=== PATIENT | male | born 1985 | race Caucasian/White ===

== ENCOUNTER 2021-06-18 18:33 | Emergency (ER) | payer BC, SELFPAY ==
--- NOTE | ~2021-06-18 | XR_ITS ---
EXAMINATION: XR CHEST CLINICAL INFORMATION: Fall with rib pain. COMPARISON: None. TECHNIQUE: 2 views of the chest were obtained. FINDINGS: Normal appearance of the cardiomediastinal silhouette. No focal airspace opacities, pleural effusions or pneumothorax. No evidence of acutely displaced rib fractures. XR/XR chest 2V IMPRESSION: No acute cardiopulmonary findings. No acutely displaced rib fractures.
[2021-06-18 19:32] VITALS: BP 157/97; PULSE 105; RESP 16; TEMP 37.4; O2SAT 98; BMI 30.3
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
[2021-06-18] MEDS: Ketorolac Tromethamine 30 MG/ML VIAL IM (20:55)
== END 2021-06-18 21:01 | disposition home or self-care (01) ==
PROVIDERS: Emergency Provider Internal Medicine
DX: Z04.3 Encounter for examination and observation following other accident (principal); R07.81 Pleurodynia
CPT/HCPCS: 71046; 96372; 99284; J1885

== ENCOUNTER 2021-06-28 16:37 | Outpatient (REF) | payer BC, SELFPAY ==
[2021-06-28 16:43] LABS: MANUAL DIFF FLAG NO
[2021-06-28 16:55] LABS: Ammonia 48 umol/L (13-55)
[2021-06-28 16:56] LABS: Basophils Absolute Auto 0.1 X10*3/uL (0.0-0.2); Basophils Percent Auto 0.3 % (0-2); Hematocrit 34.8 % (42.0-52.0); Hemoglobin 12.2 g/dl (14.0-18.0); Imm Gran Pct Auto 0.9 % (0.0-0.4); Lymphocytes Absolute Auto 2.3 X10*3/uL (1.2-4.9); Lymphocytes Percent Auto 10.4 % (20-40); Mean Corpuscular HGB Conc 35.1 g/dl (31.0-36.0); Mean Corpuscular Hemoglobin 38.2 pg (27.0-33.0); Mean Corpuscular Volume 109.1 fL (80.0-98.0); Mean Platelet Volume 9.1 fL (9.4-12.4); Monocytes Absolute Auto 1.2 X10*3/uL (0.1-1.2); Monocytes Percent Auto 5.6 % (2-11); Neutrophils Absolute Auto 18.5 x10*3/uL (2.0-8.3); Neutrophils Percent Auto 82.8 % (45-73); Platelet Count 336 X10*3/uL (160-400); Red Blood Count 3.19 X10*6/uL (4.60-5.80); Red Cell Distribution Width 13.2 % (11.0-16.0); White Blood Count 22.3 X10*3/uL (4.8-10.8)
[2021-06-28 17:30] LABS: Alanine Aminotransferase 67 U/L (0-40); Albumin Level 3.9 g/dL (3.5-5.0); Alkaline Phosphatase 198 U/L (39-117); Anion Gap 16 (12-20); Aspartate Amino Transferase 163 U/L (5-37); Bilirubin Total 4.8 mg/dL (0.0-1.0); Blood Urea Nitrogen 4 mg/dL (9-16); C Reactive Protein 2.79 mg/dL (< or = 0.50); Calcium 9.5 mg/dL (8.4-10.2); Carbon Dioxide 23 mmol/L (22-29); Chloride 94 mmol/L (96-108); Cholesterol 226 mg/dL; Estimated Glomerular Filt Rate > 60; Glucose Fasting 129 mg/dL (60-99); HDL Cholesterol 26 mg/dL; LDL Cholesterol Calculated 175 mg/dl; Potassium 4.4 mmol/L (3.3-5.1); Sodium 129 mmol/L (135-145); Total Protein 7.1 g/dL (6.5-8.0); Triglycerides 126 mg/dL
[2021-06-28 17:32] LABS: Erythrocyte Sedimentation Rate 17 MM/HR (0-15)
[2021-06-28 17:44] LABS: TSH reflex Free T4 2.44 uIU/mL (0.32-4.0)
== END 2021-06-28 16:38 | disposition home or self-care (01) ==
LOC: HO.LAB 16:37
PROVIDERS: Visit Provider Nurse Practitioner Family
DX: G25.0 Essential tremor (principal); M62.81 Muscle weakness (generalized); I10 Essential (primary) hypertension; E78.00 Pure hypercholesterolemia, unspecified; Z76.89 Persons encountering health services in other specified circumstances
CPT/HCPCS: 36415; 80053; 80061; 82140; 82550; 84443; 85025; 85652; 86140

== ENCOUNTER 2021-07-02 10:10 | Inpatient (IN) | payer BC, SELFPAY ==
[2021-07-02] VITALS (7 sets, daily range): BP systolic 116–135; BP diastolic 71–78; PULSE 75–90; RESP 16–23; TEMP 36.7–37.1; O2SAT 97–98; BMI 27.9
--- NOTE | ~2021-07-02 | CT_ITS ---
EXAMINATION: CT ABDOMEN AND PELVIS WITH CONTRAST CLINICAL INFORMATION: 36-year-old male with weakness and elevated white blood cell count. COMPARISON: None TECHNIQUE: Multidetector volumetric images were obtained from the superior aspect of the liver through the pubic symphysis following administration 85 mL of Omnipaque 350 intravenous contrast. Sagittal and coronal reformatted images were obtained on the technologist's workstation. This CT examination was performed using dose optimization techniques as appropriate, variously including the following: *Automated exposure control *Adjustment of mA and/or kV according to patient size (this includes techniques or standardized protocols for targeted exams where dose is matched to indication/reason for exam; i.e. extremities or head) *Use of iterative reconstruction technique DLP: 725 mGy-cm FINDINGS: Visualized lung bases are well aerated. The liver is enlarged. There is heterogeneously decreased attenuation of the liver is diffusely. The gallbladder is normal in appearance. The pancreas, spleen and adrenal glands are unremarkable. Symmetrically enhancing kidneys. No hydronephrosis bilaterally. Normal caliber loops of small and large bowel. Normal appendix. There are a few prominent/mildly enlarged gastric/celiac lymph nodes, for example a 1.7 cm node on image 22/102, series 3). Normal caliber abdominal aorta. No gross retroperitoneal lymphadenopathy. Small fat-containing umbilical hernia is present. The bladder is normal in appearance. The prostate gland is normal in size. No gross free pelvic fluid. No inguinal lymphadenopathy. Nondisplaced subacute fractures of the left lateral eighth and ninth ribs. CT/CT abdomen pelvis w con IMPRESSION: -Hepatomegaly with heterogeneously decreased attenuation of the liver. Findings are consistent with underlying liver disease. Correlation with liver enzymes recommended. -A few prominent/mildly enlarged gastric/celiac lymph nodes are demonstrated, nonspecific. -Nondisplaced subacute fractures of the left lateral eighth and ninth ribs. Fleischner guidelines were followed.
--- NOTE | ~2021-07-02 | XR_ITS ---
EXAMINATION: XR CHEST CLINICAL INFORMATION: Weakness COMPARISON: Chest x-ray 06/18/2021 TECHNIQUE: Frontal view of the chest was obtained. FINDINGS: Cardiac silhouette is normal in size. The lungs are well aerated. There is no lobar consolidation. No pleural effusion or pneumothorax. XR/XR chest 1V IMPRESSION: No acute pulmonary pathology
--- NOTE | 2021-07-02 11:38 | ED_ITS ---
HPI - Extremity Problem General Chief complaint: Extremity Problem Stated complaint: FOOT PAIN HAND WEAKNESS Time Seen by Provider: 07/02/21 11:35 Source: patient Mode of arrival: ambulatory Limitations: no limitations History of Present Illness MD Complaint: extremity pain and other (leg weakness) Onset (ago): week(s) (1.5 weeks ago) Pain Consistency: constant Location: left, right and lower extremity Quality: burning and aching Radiation: none Relieving factors: nothing Exacerbating factors: exertion Associated symptoms: other (etoh use, burning pain in legs, falls no head injury seen here and PCP end of May for falls associated with it - notes that he did drink and was vomiting prior to this, he has been trying to cut back on his daily drinking) Context: other (COVID back in april , no PCP in 15 years) Related Data Previous Rx's Medication Instructions Recorded propranolol 40 mg tablet 40 mg PO BID #60 tab 06/28/21 Allergies Allergy/AdvReac Type Severity Reaction Status Date / Time No Known Allergies Allergy Verified 06/28/21 15:42 Review of Systems 2 Verdana 4l Review of Systems: Verdana 4d Verdana 4d Constitutional : No Weight loss, No Fever, No Chills, No Fatigue, No Malaise ENT/Mouth : No sore throat, No Rhinorrhea Eyes: No Eye Pain, No Swelling, No Redness Cardiovascular : No Chest Pain, No SOB, No Dyspnea on Exertion, No Orthopnea,, No Edema, No Palpitations Respiratory : No Cough, No Sputum, No Wheezing Gastrointestinal : pos Nausea, No Vomiting, No Diarrhea, No Constipation, No abdominal Pain, No Hematochezia, No Melena Genitourinary : No Dysuria, No Urinary Frequency, No Hematuria, Musculoskeletal : No joint pain, pos Myalgias, No Joint Swelling Skin : No Skin Lesions, No rash Neuro : pos Weakness, pos Numbness, No Dizziness, No Headache, pos diff walking, no parasthesias Psych : pos Anxiety/Panic, No Depression Heme/Lymph: No Bruising, No Bleeding,No Lymphadenopathy Endocrine : No Polyuria, No Polydipsia All other systems reviewed and are negative [facility] Past Medical History Medical History COVID-19 virus infection (~04/2021) Essential tremor Excessive drinking alcohol Glucose intolerance Surgical History (Updated 06/28/21 @ 15:44 by CINDY Arana) History of facial surgery Family History Family History (Updated 06/28/21 @ 15:47 by CINDY Arana) Mother Hypertension Tremor Father Hypertension Family/Other Substance use disorder Mental health disorder Paternal Grandfather Colon cancer Maternal Grandfather Skin cancer Maternal Grandmother Tremor Social History Social History [facility] Alcohol intake: current Alcohol intake frequency: 3 or more drinks per day Alcohol type: beer and hard liquor Patient Tobacco Use Status: Never used Tobacco Tobacco use type: Cigarette e-Cigarette/Vaping Use: Never Used Second Hand Smoke Exposure: No Advance Directives: Yes Advance Directives Information Provided: Yes Advance Directives on File: No service: No Current occupational status: employed Current occupational exposures/hazards: No Physical Exam Verdana 4l Vital Signs: Verdana 4d Verdana 4d Vital Signs: Verdana 4d Verdana 4Bd Last Vital Signs Verdana 4d Healthcare Corporate Account Director New 4d Healthcare Corporate Account Director New 4d Temp 98.0 F 07/02/21 10:21 Healthcare Corporate Account Director New 4d Pulse 85 07/02/21 15:02 Healthcare Corporate Account Director New 4d Resp 19 07/02/21 15:02 BP 121/77 07/02/21 15:02 Pulse Ox 97 07/02/21 15:02 BMI result Body Mass Index 27.9 Appearance: Alert. Oriented X3. No acute distress. Anxious Eyes: Pupils equal, round and reactive to light. ENT: Pharynx dry mouth Neck: Normal inspection. Neck supple. CVS: Normal heart rate and rhythm. Pulses normal. Respiratory: No respiratory distress. Breath sounds normal. Abdomen: Soft and nontender. Skin: Skin warm and dry. Normal skin color. Normal skin turgor. Extremities: No lower extremity edema. 1+ DTR in patella and achilles area - reports he can feel my hands to touch but his feet are burning no clonus, can lift his legs about 90 degrees, uses cane Neuro: Oriented X 3. No motor deficit. No sensory deficit. Course Course Course Narrative: has leukocytosis and elevated LFTs / bili negative CXR, no ascites on my exam, no cellulitis no UTI, no pneumonia at this time suspect all lab abnormalities related to liver disease and ETOH abuse and not infection or severe sepsis he denies IVDA Na likely causing falls - GBS seems unlikely with his constellation of symptoms at this time will start on phenobarb to prevent withdrawal - has been trying to taper down this week was drinking 10 drinks a day between beer and liquor. MDM - Extremity (Nontraumatic) MDM Narrative Medical decision making narrative: 36 yo male with hx of heavy ETOH abuse here with c/o LE pain and weakness has sensation intact does have some decreased reflexes - started he thinks after vomiting from drinking - WBC count is elevated. Unsure if this is electrolyte related vs GBS - will obtain basic labs, CT scan for mass/infection, give IVF and IV magnesium. Possible LP if no sig lyte derangement to explain his symptoms. Dispo per results and findings. Lab Data Result diagrams: 07/02/21 11:33 07/02/21 11:33 Labs: Lab Results 07/02/21 07/02/21 07/02/21 Range/Units 11:30 11:33 11:33 WBC 23.0 H (4.8-10.8) X10*3/uL RBC 2.97 L (4.60-5.80) X10*6/uL Hgb 11.3 L (14.0-18.0) g/dl Hct 31.9 L (42.0-52.0) % MCV 107.4 H (80.0-98.0) fL MCH 38.0 H (27.0-33.0) pg MCHC 35.4 (31.0-36.0) g/dl RDW 13.1 (11.0-16.0) % Plt Count 369 (160-400) X10*3/uL MPV 9.1 L (9.4-12.4) fL Immature Gran % (Auto) 1.0 H (0.0-0.4) % Neut % (Auto) 73.1 H (45-73) % Lymph % (Auto) 17.9 L (20-40) % [place] % (Auto) 7.4 (2-11) % Eos % (Auto) 0.3 (0-4) % Baso % (Auto) 0.3 (0-2) % Lymph # (Auto) 4.1 (1.2-4.9) X10*3/uL [place] # (Auto) 1.7 H (0.1-1.2) X10*3/uL Eos # (Auto) 0.1 (0.0-0.4) X10*3/uL Baso # (Auto) 0.1 (0.0-0.2) X10*3/uL Abs Immat Gran (auto) 0.23 H (0.00-0.03) X10*3/uL Absolute Neuts (auto) 16.8 H (2.0-8.3) x10*3/uL Absolute Nucleated RBC 0.000 (0.0-0.012) X10*3/uL Nucleated RBC % (auto) 0.0 (0.0-0.2) /100WBC Smear Tech's Comments VERIFIED ESR (0-15) MM/HR PT (9.9-13.0) SEC INR (0.9-1.1) APTT (24.1-38.0) SEC VBG pH (7.32-7.43) VBG pCO2 mmHg VBG pO2 mmHg VBG HCO3 (22-26) mmol/L VBG O2 Saturation % VBG Base Excess mmol/L Sodium 125 L (135-145) mmol/L Potassium 4.6 (3.3-5.1) mmol/L Chloride 94 L (96-108) mmol/L Carbon Dioxide 22 (22-29) mmol/L Anion Gap 14 (12-20) BUN 6 L (9-16) mg/dL Creatinine 0.57 (0.5-1.4) mg/dL Estim Creat Clear Calc 218.9 Estimated GFR > 60 Random Glucose 123 H (60-115) mg/dL Estimat Average Glucose mg/dL Hemoglobin A1c % % Lactic Acid (0.5-2.0) mmol/L Calcium 9.3 (8.4-10.2) mg/dL Magnesium 1.8 (1.6-2.6) mg/dL Total Bilirubin 3.1 H (0.0-1.0) mg/dL Direct Bilirubin (0.0-0.5) mg/dL AST 182 H (5-37) U/L ALT 80 H (0-40) U/L Alkaline Phosphatase 173 H (39-117) U/L C-Reactive Protein (< or = 0.50) mg/dL Total Protein 6.6 (6.5-8.0) g/dL Albumin 3.8 (3.5-5.0) g/dL Vitamin B12 (200-900) pg/mL Folate (> or = 4.0) ng/mL TSH (0.32-4.0) uIU/mL Urine Color DK YELLOW Urine Appearance HAZY Urine pH 6.0 (5.0-8.0) Ur Specific [place] 1.010 (1.005-1.025) Urine Protein NEG (NEG-TRACE) MG/DL Urine Glucose (UA) NEG (NEG) MG/DL Urine Ketones NEG (NEG) MG/DL Urine Blood NEG (NEG) Urine Nitrite NEG (NEG) Ur Leukocyte Esterase TRACE H (NEG) Urine RBC 0 (0) /HPF Urine WBC 1-4 (0-4) /HPF Ur Squamous Epith Cells TRACE /LPF Talc Crystals 1+ /LPF Urine Bacteria NONE /LPF Ethyl Alcohol mg/dL 07/02/21 07/02/21 07/02/21 Range/Units 11:33 12:14 12:14 WBC (4.8-10.8) X10*3/uL RBC (4.60-5.80) X10*6/uL Hgb (14.0-18.0) g/dl Hct (42.0-52.0) % MCV (80.0-98.0) fL MCH (27.0-33.0) pg MCHC (31.0-36.0) g/dl RDW (11.0-16.0) % Plt Count (160-400) X10*3/uL MPV (9.4-12.4) fL Immature Gran % (Auto) (0.0-0.4) % Neut % (Auto) (45-73) % Lymph % (Auto) (20-40) % [place] % (Auto) (2-11) % Eos % (Auto) (0-4) % Baso % (Auto) (0-2) % Lymph # (Auto) (1.2-4.9) X10*3/uL [place] # (Auto) (0.1-1.2) X10*3/uL Eos # (Auto) (0.0-0.4) X10*3/uL Baso # (Auto) (0.0-0.2) X10*3/uL Abs Immat Gran (auto) (0.00-0.03) X10*3/uL Absolute Neuts (auto) (2.0-8.3) x10*3/uL Absolute Nucleated RBC (0.0-0.012) X10*3/uL Nucleated RBC % (auto) (0.0-0.2) /100WBC Smear Tech's Comments ESR (0-15) MM/HR PT (9.9-13.0) SEC INR (0.9-1.1) APTT (24.1-38.0) SEC VBG pH (7.32-7.43) VBG pCO2 mmHg VBG pO2 mmHg VBG HCO3 (22-26) mmol/L VBG O2 Saturation % VBG Base Excess mmol/L Sodium (135-145) mmol/L Potassium (3.3-5.1) mmol/L Chloride (96-108) mmol/L Carbon Dioxide (22-29) mmol/L Anion Gap (12-20) BUN (9-16) mg/dL Creatinine (0.5-1.4) mg/dL Estim Creat Clear Calc Estimated GFR Random Glucose (60-115) mg/dL Estimat Average Glucose 103 mg/dL Hemoglobin A1c % 5.2 % Lactic Acid (0.5-2.0) mmol/L Calcium 9.5 (8.4-10.2) mg/dL Magnesium (1.6-2.6) mg/dL Total Bilirubin 3.1 H (0.0-1.0) mg/dL Direct Bilirubin 1.5 H (0.0-0.5) mg/dL AST 181 H (5-37) U/L ALT 79 H (0-40) U/L Alkaline Phosphatase 173 H (39-117) U/L C-Reactive Protein (< or = 0.50) mg/dL Total Protein 6.6 (6.5-8.0) g/dL Albumin 3.8 (3.5-5.0) g/dL Vitamin B12 863 (200-900) pg/mL Folate 2.0 L (> or = 4.0) ng/mL TSH (0.32-4.0) uIU/mL Urine Color Urine Appearance Urine pH (5.0-8.0) Ur Specific [place] (1.005-1.025) Urine Protein (NEG-TRACE) MG/DL Urine Glucose (UA) (NEG) MG/DL Urine Ketones (NEG) MG/DL Urine Blood (NEG) Urine Nitrite (NEG) Ur Leukocyte Esterase (NEG) Urine RBC (0) /HPF Urine WBC (0-4) /HPF Ur Squamous Epith Cells /LPF Talc Crystals /LPF Urine Bacteria /LPF Ethyl Alcohol mg/dL 07/02/21 07/02/21 07/02/21 Range/Units 12:14 12:16 12:16 WBC (4.8-10.8) X10*3/uL RBC (4.60-5.80) X10*6/uL Hgb (14.0-18.0) g/dl Hct (42.0-52.0) % MCV (80.0-98.0) fL MCH (27.0-33.0) pg MCHC (31.0-36.0) g/dl RDW (11.0-16.0) % Plt Count (160-400) X10*3/uL MPV (9.4-12.4) fL Immature Gran % (Auto) (0.0-0.4) % Neut % (Auto) (45-73) % Lymph % (Auto) (20-40) % [place] % (Auto) (2-11) % Eos % (Auto) (0-4) % Baso % (Auto) (0-2) % Lymph # (Auto) (1.2-4.9) X10*3/uL [place] # (Auto) (0.1-1.2) X10*3/uL Eos # (Auto) (0.0-0.4) X10*3/uL Baso # (Auto) (0.0-0.2) X10*3/uL Abs Immat Gran (auto) (0.00-0.03) X10*3/uL Absolute Neuts (auto) (2.0-8.3) x10*3/uL Absolute Nucleated RBC (0.0-0.012) X10*3/uL Nucleated RBC % (auto) (0.0-0.2) /100WBC Smear Tech's Comments ESR 12 (0-15) MM/HR PT (9.9-13.0) SEC INR (0.9-1.1) APTT (24.1-38.0) SEC VBG pH (7.32-7.43) VBG pCO2 mmHg VBG pO2 mmHg VBG HCO3 (22-26) mmol/L VBG O2 Saturation % VBG Base Excess mmol/L Sodium (135-145) mmol/L Potassium (3.3-5.1) mmol/L Chloride (96-108) mmol/L Carbon Dioxide (22-29) mmol/L Anion Gap (12-20) BUN (9-16) mg/dL Creatinine (0.5-1.4) mg/dL Estim Creat Clear Calc Estimated GFR Random Glucose (60-115) mg/dL Estimat Average Glucose mg/dL Hemoglobin A1c % % Lactic Acid (0.5-2.0) mmol/L Calcium (8.4-10.2) mg/dL Magnesium (1.6-2.6) mg/dL Total Bilirubin (0.0-1.0) mg/dL Direct Bilirubin (0.0-0.5) mg/dL AST (5-37) U/L ALT (0-40) U/L Alkaline Phosphatase (39-117) U/L C-Reactive Protein (< or = 0.50) mg/dL Total Protein (6.5-8.0) g/dL Albumin (3.5-5.0) g/dL Vitamin B12 (200-900) pg/mL Folate (> or = 4.0) ng/mL TSH 2.07 (0.32-4.0) uIU/mL Urine Color Urine Appearance Urine pH (5.0-8.0) Ur Specific [place] (1.005-1.025) Urine Protein (NEG-TRACE) MG/DL Urine Glucose (UA) (NEG) MG/DL Urine Ketones (NEG) MG/DL Urine Blood (NEG) Urine Nitrite (NEG) Ur Leukocyte Esterase (NEG) Urine RBC (0) /HPF Urine WBC (0-4) /HPF Ur Squamous Epith Cells /LPF Talc Crystals /LPF Urine Bacteria /LPF Ethyl Alcohol < 10 mg/dL 02/04/22 02/04/22 02/04/22 Range/Units 12:16 12:16 12:18 WBC (4.8-10.8) X10*3/uL RBC (4.60-5.80) X10*6/uL Hgb (14.0-18.0) g/dl Hct (42.0-52.0) % MCV (80.0-98.0) fL MCH (27.0-33.0) pg MCHC (31.0-36.0) g/dl RDW (11.0-16.0) % Plt Count (160-400) X10*3/uL MPV (9.4-12.4) fL Immature Gran % (Auto) (0.0-0.4) % Neut % (Auto) (45-73) % Lymph % (Auto) (20-40) % [place] % (Auto) (2-11) % Eos % (Auto) (0-4) % Baso % (Auto) (0-2) % Lymph # (Auto) (1.2-4.9) X10*3/uL [place] # (Auto) (0.1-1.2) X10*3/uL Eos # (Auto) (0.0-0.4) X10*3/uL Baso # (Auto) (0.0-0.2) X10*3/uL Abs Immat Gran (auto) (0.00-0.03) X10*3/uL Absolute Neuts (auto) (2.0-8.3) x10*3/uL Absolute Nucleated RBC (0.0-0.012) X10*3/uL Nucleated RBC % (auto) (0.0-0.2) /100WBC Smear Tech's Comments ESR (0-15) MM/HR PT (9.9-13.0) SEC INR (0.9-1.1) APTT (24.1-38.0) SEC VBG pH 7.46 H (7.32-7.43) VBG pCO2 30 mmHg VBG pO2 125 mmHg VBG HCO3 21 L (22-26) mmol/L VBG O2 Saturation 100.0 % VBG Base Excess -0.9 mmol/L Sodium (135-145) mmol/L Potassium (3.3-5.1) mmol/L Chloride (96-108) mmol/L Carbon Dioxide (22-29) mmol/L Anion Gap (12-20) BUN (9-16) mg/dL Creatinine (0.5-1.4) mg/dL Estim Creat Clear Calc Estimated GFR Random Glucose (60-115) mg/dL Estimat Average Glucose mg/dL Hemoglobin A1c % % Lactic Acid 1.6 (0.5-2.0) mmol/L Calcium (8.4-10.2) mg/dL Magnesium (1.6-2.6) mg/dL Total Bilirubin (0.0-1.0) mg/dL Direct Bilirubin (0.0-0.5) mg/dL AST (5-37) U/L ALT (0-40) U/L Alkaline Phosphatase (39-117) U/L C-Reactive Protein 2.36 H (< or = 0.50) mg/dL Total Protein (6.5-8.0) g/dL Albumin (3.5-5.0) g/dL Vitamin B12 (200-900) pg/mL Folate (> or = 4.0) ng/mL TSH (0.32-4.0) uIU/mL Urine Color Urine Appearance Urine pH (5.0-8.0) Ur Specific [place] (1.005-1.025) Urine Protein (NEG-TRACE) MG/DL Urine Glucose (UA) (NEG) MG/DL Urine Ketones (NEG) MG/DL Urine Blood (NEG) Urine Nitrite (NEG) Ur Leukocyte Esterase (NEG) Urine RBC (0) /HPF Urine WBC (0-4) /HPF Ur Squamous Epith Cells /LPF Talc Crystals /LPF Urine Bacteria /LPF Ethyl Alcohol mg/dL 07/02/21 Range/Units 12:36 WBC (4.8-10.8) X10*3/uL RBC (4.60-5.80) X10*6/uL Hgb (14.0-18.0) g/dl Hct (42.0-52.0) % MCV (80.0-98.0) fL MCH (27.0-33.0) pg MCHC (31.0-36.0) g/dl RDW (11.0-16.0) % Plt Count (160-400) X10*3/uL MPV (9.4-12.4) fL Immature Gran % (Auto) (0.0-0.4) % Neut % (Auto) (45-73) % Lymph % (Auto) (20-40) % [place] % (Auto) (2-11) % Eos % (Auto) (0-4) % Baso % (Auto) (0-2) % Lymph # (Auto) (1.2-4.9) X10*3/uL [place] # (Auto) (0.1-1.2) X10*3/uL Eos # (Auto) (0.0-0.4) X10*3/uL Baso # (Auto) (0.0-0.2) X10*3/uL Abs Immat Gran (auto) (0.00-0.03) X10*3/uL Absolute Neuts (auto) (2.0-8.3) x10*3/uL Absolute Nucleated RBC (0.0-0.012) X10*3/uL Nucleated RBC % (auto) (0.0-0.2) /100WBC Smear Tech's Comments ESR (0-15) MM/HR PT 15.1 H (9.9-13.0) SEC INR 1.3 H (0.9-1.1) APTT 36.8 (24.1-38.0) SEC VBG pH (7.32-7.43) VBG pCO2 mmHg VBG pO2 mmHg VBG HCO3 (22-26) mmol/L VBG O2 Saturation % VBG Base Excess mmol/L Sodium (135-145) mmol/L Potassium (3.3-5.1) mmol/L Chloride (96-108) mmol/L Carbon Dioxide (22-29) mmol/L Anion Gap (12-20) BUN (9-16) mg/dL Creatinine (0.5-1.4) mg/dL Estim Creat Clear Calc Estimated GFR Random Glucose (60-115) mg/dL Estimat Average Glucose mg/dL Hemoglobin A1c % % Lactic Acid (0.5-2.0) mmol/L Calcium (8.4-10.2) mg/dL Magnesium (1.6-2.6) mg/dL Total Bilirubin (0.0-1.0) mg/dL Direct Bilirubin (0.0-0.5) mg/dL AST (5-37) U/L ALT (0-40) U/L Alkaline Phosphatase (39-117) U/L C-Reactive Protein (< or = 0.50) mg/dL Total Protein (6.5-8.0) g/dL Albumin (3.5-5.0) g/dL Vitamin B12 (200-900) pg/mL Folate (> or = 4.0) ng/mL TSH (0.32-4.0) uIU/mL Urine Color Urine Appearance Urine pH (5.0-8.0) Ur Specific [place] (1.005-1.025) Urine Protein (NEG-TRACE) MG/DL Urine Glucose (UA) (NEG) MG/DL Urine Ketones (NEG) MG/DL Urine Blood (NEG) Urine Nitrite (NEG) Ur Leukocyte Esterase (NEG) Urine RBC (0) /HPF Urine WBC (0-4) /HPF Ur Squamous Epith Cells /LPF Talc Crystals /LPF Urine Bacteria /LPF Ethyl Alcohol mg/dL ECG Data Attestation EKG: I personally reviewed and interpreted this ECG as follows: ECG interpretation date: 07/02/21 ECG interpretation time: 12:22 Interpretation: Rate: 73 Rhythm: NSR [place]: normal Normal P waves. Normal ZINA. Normal QRS complex. ST T wave : normal no HAILE qTC: normal prior studies: no acute ischemia The study has been interpreted contemporaneously by me. . Discharge Plan Discharge Clinical Impression: Elevated LFTs, Acute hyponatremia, Alcohol abuse, Elevated bilirubin, Muscle weakness Elevated white blood cell count Qualifiers: Leukocytosis type: unspecified Qualified Code(s): D72.829 - Elevated white blood cell count, unspecified Patient Disposition: Admitted As Inpatient
[2021-07-02 11:47] LABS: Basophils Absolute Auto 0.1 X10*3/uL (0.0-0.2); Basophils Percent Auto 0.3 % (0-2); Eosinophils Absolute Auto 0.1 X10*3/uL (0.0-0.4); Eosinophils Percent Auto 0.3 % (0-4); Hematocrit 31.9 % (42.0-52.0); Hemoglobin 11.3 g/dl (14.0-18.0); Imm Gran Abs Auto 0.23 X10*3/uL (0.00-0.03); Lymphocytes Absolute Auto 4.1 X10*3/uL (1.2-4.9); Lymphocytes Percent Auto 17.9 % (20-40); MANUAL DIFF FLAG SCAN; Mean Corpuscular HGB Conc 35.4 g/dl (31.0-36.0); Mean Corpuscular Volume 107.4 fL (80.0-98.0); Mean Platelet Volume 9.1 fL (9.4-12.4); Monocytes Absolute Auto 1.7 X10*3/uL (0.1-1.2); Monocytes Percent Auto 7.4 % (2-11); Neutrophils Absolute Auto 16.8 x10*3/uL (2.0-8.3); Neutrophils Percent Auto 73.1 % (45-73); Platelet Count 369 X10*3/uL (160-400); Red Blood Count 2.97 X10*6/uL (4.60-5.80); Red Cell Distribution Width 13.1 % (11.0-16.0); SCAN SMEAR FLAG 1
[2021-07-02 11:48] LABS: Appearance Urine HAZY; Color Urine DK YELLOW
[2021-07-02 11:49] LABS: Glucose Urine UA NEG (NEG); Leukocyte Esterase Urine TRACE (NEG); Nitrite Urine NEG (NEG); UACC Culture Trigger YES; Urine Blood NEG (NEG); Urine Ketones NEG (NEG); Urine Protein NEG (NEG-TRACE)
--- NOTE | 2021-07-02 11:51 | ECG_ITS ---
Test Reason : sepsis Blood Pressure : / mmHG Vent. Rate : 073 BPM Atrial Rate : 073 BPM P-R Int : 130 ms QRS Dur : 108 ms QT Int : 432 ms P-R-T Axes : 021 015 008 degrees QTc Int : 475 ms Normal sinus rhythm Normal ECG No previous ECGs available Referred By: Addis Huang Electronically Signed By:JITENDRA CARTER
[2021-07-02 11:57] LABS: RBC Urine 0 /HPF (0); Squamous Epithelial Cell Urine TRACE /LPF; Urine Talc Crystals 1+ /LPF
[2021-07-02 12:04] LABS: SLIDE REVIEW VERIFIED
[2021-07-02 12:11] LABS: Alanine Aminotransferase 79 U/L (0-40); Albumin Level 3.8 g/dL (3.5-5.0); Alkaline Phosphatase 173 U/L (39-117); Aspartate Amino Transferase 181 U/L (5-37); Bilirubin Direct 1.5 mg/dL (0.0-0.5); Bilirubin Total 3.1 mg/dL (0.0-1.0); Calcium 9.5 mg/dL (8.4-10.2); Total Protein 6.6 g/dL (6.5-8.0)
[2021-07-02 12:14] LABS: Alanine Aminotransferase 80 U/L (0-40); Albumin Level 3.8 g/dL (3.5-5.0); Alkaline Phosphatase 173 U/L (39-117); Anion Gap 14 (12-20); Aspartate Amino Transferase 182 U/L (5-37); Bilirubin Total 3.1 mg/dL (0.0-1.0); Blood Urea Nitrogen 6 mg/dL (9-16); Calcium 9.3 mg/dL (8.4-10.2); Carbon Dioxide 22 mmol/L (22-29); Chloride 94 mmol/L (96-108); Creatinine Clr Calc Pharmacy 218.9; Estimated Glomerular Filt Rate > 60; Glucose Random 123 mg/dL (60-115); Magnesium 1.8 mg/dL (1.6-2.6); Potassium 4.6 mmol/L (3.3-5.1); Total Protein 6.6 g/dL (6.5-8.0)
[2021-07-02 12:19] LABS: Sodium 125 mmol/L (135-145)
[2021-07-02] MEDS: 0.9 % Sodium Chloride 1,000 ML 999 ML IV (12:19)
[2021-07-02 12:25] LABS: VBG Base Excess -0.9 mmol/L; VBG HCO3 21 mmol/L (22-26); VBG pCO2 30 mmHg; VBG pH 7.46 (7.32-7.43); VBG pO2 125 mmHg
[2021-07-02 12:38] LABS: Venous Blood Gas Refer to POC result
[2021-07-02] MEDS: 0.9 % Sodium Chloride 1,000 ML 999 ML IVCONT (12:40)
[2021-07-02 12:44] LABS: Lactic Acid 1.6 mmol/L (0.5-2.0)
[2021-07-02 12:47] LABS: C Reactive Protein 2.36 mg/dL (< or = 0.50); Ethanol < 10 mg/dL
[2021-07-02 12:47] LABS: Estimated Average Glucose 103 mg/dL; Hemoglobin A1c % 5.2 %
[2021-07-02 12:51] LABS: INTERNATIONAL NORM RATIO 1.3 (0.9-1.1); Prothrombin Time 15.1 SEC (9.9-13.0)
[2021-07-02 12:53] LABS: Partial Thromboplastin Time 36.8 SEC (24.1-38.0)
[2021-07-02 13:05] LABS: Erythrocyte Sedimentation Rate 12 MM/HR (0-15)
[2021-07-02] MEDS: Thiamine HCL 200 MG in 0.9 % Sodium Chloride 100 ML 204 MG IV (13:05)
[2021-07-02] MEDS: Magnesium Sulfate/H2O 2 GM/50 ML PIGGYBACK IV (13:05)
[2021-07-02 13:07] LABS: TSH reflex Free T4 2.07 uIU/mL (0.32-4.0)
[2021-07-02] MEDS: iohexoL 350 MG/ML 100 ML INFUS..BTL 85 ML IV (13:12)
[2021-07-02 13:21] LABS: Vitamin B12 863 pg/mL (200-900)
[2021-07-02] MEDS: Folic Acid 1 MG TABLET PO (13:30)
[2021-07-02 15:23] LABS: Amphetamine Screen Urine Not Detected (Not Detect); Barbiturates, Urine Not Detected (Not Detect); Benzodiazepines Screen Urine Not Detected (Not Detect); Cannabinoid Screen Urine POSITIVE (Not Detect); Cocaine Screen Urine Not Detected (Not Detect); Fentanyl, urine Not Detected (Not Detect); Opiate Screen Urine Not Detected (Not Detect); Phencyclidine Screen Urine Not Detected (Not Detect)
[2021-07-02 15:30] LABS: COVID-19 Test Negative (Negative)
--- NOTE | 2021-07-02 16:24 | P.HPHOSP_ITS ---
History of Present Illness Date of Service: 07/02/21 Chief Complaint: weaknesss and pain in legs and drinking too much alcohol 36 year male with alcohol dependence drinks about 6 to 8 drinks a day, history of essential tremors takes propranolol, got covid in mid april 2021. He presents with complaints of weakness in the extremities for about a week and half now to the point where he's having trouble walking, he's been complaining of neuropathic type of pain in the legs and the hands for more than a months. He has recently been trying to cut down on his alcohol use. He has never been treated in the hospital for alcohol withdrawal, he has never had seizure. He felt so weak today and compell himself to come in today. He is covid negative and has had 2 doses of Pfizer vaccine. Work up in ED shows elevated LFTS, tbili 3.1, INR is 1.3, sodium level is 125, WBC 23 no fever. Review of Systems Verdana 4l Review of Systems: Verdana 4d Verdana 4Bd Gen: Verdana 4d no fever Verdana 4Bd Resp: Verdana 4d no sob, no cough Verdana 4Bd CV: Verdana 4d no chest, no RODRIGUEZ, no leg edema Verdana 4Bd GI: Verdana 4d No n/v, no abd pain Verdana 4Bd Neuro: Verdana 4d No confusion, pain/numbnessnumbness in hand and feet, no seziure Yes all other systems are reviewed and are negative [facility] Medical History COVID-19 virus infection (~04/2021) Essential tremor Excessive drinking alcohol Glucose intolerance Family History (Updated 06/28/21 @ 15:47 by CINDY Arana) Mother Hypertension Tremor Father Hypertension Family/Other Substance use disorder Mental health disorder Paternal Grandfather Colon cancer Maternal Grandfather Skin cancer Maternal Grandmother Tremor Surgical History (Updated 06/28/21 @ 15:44 by CINDY Arana) History of facial surgery Social History Housing: Condominium Alcohol intake: current Alcohol intake frequency: 3 or more drinks per day Alcohol type: beer Patient Tobacco Use Status: Never used Tobacco Tobacco use type: Cigarette e-Cigarette/Vaping Use: Never Used Second Hand Smoke Exposure: No Use of substances other than those prescribed or required for medical reasons: No Advance Directives: Yes Advance Directives Information Provided: Yes Advance Directives on File: No service: No Current occupational status: employed Current occupational exposures/hazards: No Meds Allergies Allergy/AdvReac Type Severity Reaction Status Date / Time No Known Allergies Allergy Verified 06/28/21 15:42 Active Medications: Current Medications Phenobarbital (Phenobarbital 30 Mg Tablet) 60 mg PO BID [facility]; Protocol Stop: 07/04/21 21:01 Phenobarbital (Phenobarbital 30 Mg Tablet) 30 mg PO BID [facility]; Protocol Stop: 07/06/21 21:01 Phenobarbital (Phenobarbital 15 Mg Tablet) 15 mg PO DAILY [facility]; Protocol Stop: 07/08/21 09:01 Phenobarbital Sodium (Phenobarbital Sodium 130 Mg/Ml Vial) 192 mg IM ONCE ONE; Protocol Stop: 07/02/21 18:31 Phenobarbital Sodium (Phenobarbital Sodium 130 Mg/Ml Vial) 192 mg IM ONCE ONE; Protocol Stop: 07/02/21 21:31 Physical Exam Verdana 4l Vital Signs and Narrative: Verdana 4d Verdana 4d Vital Signs: Verdana 4d Verdana 4Bd Last Vital Signs Verdana 4d Soap Maker New 4d Soap Maker New 4d Temp 98.0 F 07/02/21 10:21 Soap Maker New 4d Pulse 85 07/02/21 15:02 Soap Maker New 4d Resp 19 07/02/21 15:02 BP 121/77 07/02/21 15:02 Pulse Ox 97 07/02/21 15:02 BMI result Body Mass Index 27.9 Const: Other: Constitutional: Alert, in no distress, well groomed Mental Status: Oriented to person, place and time. Eyes: Pupils are equal, round and reactive to light. Ear, Nose and Throat: Oropharynx clear, mucous membranes moist. Ears and nose without eformities. Trachea midline. Respiratory: Clear to auscultation. No wheezing, rales or rhonchi. Cardiovascular: S1 S2 regular. No murmurs, rubs or gallops. Gastrointestinal: Abdomen soft, non-tender, non-distended. Normal bowel sounds.? Neurologic: Cranial nerves II-XII grossly intact. No focal neurological deficits. Moves all extremities spontaneously.?No hyperreflexia Skin: No rashes or lesions.? Musculoskeletal: No cyanosis or clubbing. Psychiatric: Normal mood and affect? Results Labs CBC and Chem 7: 07/03/21 07:05 07/03/21 07:05 Labs: Laboratory Results - last 24 hr 07/02/21 07/02/21 07/02/21 11:30 11:33 11:33 MCV 107.4 H MCH 38.0 H MCHC 35.4 RDW 13.1 Plt Count 369 MPV 9.1 L Immature Gran % (Auto) 1.0 H Neut % (Auto) 73.1 H Lymph % (Auto) 17.9 L [place] % (Auto) 7.4 Eos % (Auto) 0.3 Baso % (Auto) 0.3 Lymph # (Auto) 4.1 [place] # (Auto) 1.7 H Eos # (Auto) 0.1 Baso # (Auto) 0.1 Abs Immat Gran (auto) 0.23 H Absolute Neuts (auto) 16.8 H Absolute Nucleated RBC 0.000 Nucleated RBC % (auto) 0.0 Smear Tech's Comments VERIFIED ESR PT INR APTT VBG pH VBG pCO2 VBG pO2 VBG HCO3 VBG O2 Saturation VBG Base Excess Anion Gap 14 Estim Creat Clear Calc 218.9 Estimated GFR > 60 Random Glucose 123 H Estimat Average Glucose Hemoglobin A1c % Lactic Acid Calcium 9.3 Magnesium 1.8 Total Bilirubin 3.1 H Direct Bilirubin AST 182 H ALT 80 H Alkaline Phosphatase 173 H C-Reactive Protein Total Protein 6.6 Albumin 3.8 Vitamin B12 Folate TSH Urine Color DK YELLOW Urine Appearance HAZY Urine pH 6.0 Ur Specific [place] 1.010 Urine Protein NEG Urine Glucose (UA) NEG Urine Ketones NEG Urine Blood NEG Urine Nitrite NEG Ur Leukocyte Esterase TRACE H Urine RBC 0 Urine WBC 1-4 Ur Squamous Epith Cells TRACE Talc Crystals 1+ Urine Bacteria NONE Urine Opiates Screen Urine Fentanyl Screen Ur Barbiturates Screen Ur Phencyclidine Scrn Ur Amphetamines Screen U Benzodiazepines Scrn Urine Cocaine Screen U Marijuana (THC) Screen Ethyl Alcohol COVID-19 ([facility]) COVID-19 Clin Com 07/02/21 07/02/21 07/02/21 11:33 12:14 12:14 MCV MCH MCHC RDW Plt Count MPV Immature Gran % (Auto) Neut % (Auto) Lymph % (Auto) [place] % (Auto) Eos % (Auto) Baso % (Auto) Lymph # (Auto) [place] # (Auto) Eos # (Auto) Baso # (Auto) Abs Immat Gran (auto) Absolute Neuts (auto) Absolute Nucleated RBC Nucleated RBC % (auto) Smear Tech's Comments ESR PT INR APTT VBG pH VBG pCO2 VBG pO2 VBG HCO3 VBG O2 Saturation VBG Base Excess Anion Gap Estim Creat Clear Calc Estimated GFR Random Glucose Estimat Average Glucose 103 Hemoglobin A1c % 5.2 Lactic Acid Calcium 9.5 Magnesium Total Bilirubin 3.1 H Direct Bilirubin 1.5 H AST 181 H ALT 79 H Alkaline Phosphatase 173 H C-Reactive Protein Total Protein 6.6 Albumin 3.8 Vitamin B12 863 Folate 2.0 L TSH Urine Color Urine Appearance Urine pH Ur Specific [place] Urine Protein Urine Glucose (UA) Urine Ketones Urine Blood Urine Nitrite Ur Leukocyte Esterase Urine RBC Urine WBC Ur Squamous Epith Cells Talc Crystals Urine Bacteria Urine Opiates Screen Urine Fentanyl Screen Ur Barbiturates Screen Ur Phencyclidine Scrn Ur Amphetamines Screen U Benzodiazepines Scrn Urine Cocaine Screen U Marijuana (THC) Screen Ethyl Alcohol COVID-19 ([facility]) COVID-19 Clin Com 07/02/21 07/02/21 07/02/21 12:14 12:16 12:16 MCV MCH MCHC RDW Plt Count MPV Immature Gran % (Auto) Neut % (Auto) Lymph % (Auto) [place] % (Auto) Eos % (Auto) Baso % (Auto) Lymph # (Auto) [place] # (Auto) Eos # (Auto) Baso # (Auto) Abs Immat Gran (auto) Absolute Neuts (auto) Absolute Nucleated RBC Nucleated RBC % (auto) Smear Tech's Comments ESR 12 PT INR APTT VBG pH VBG pCO2 VBG pO2 VBG HCO3 VBG O2 Saturation VBG Base Excess Anion Gap Estim Creat Clear Calc Estimated GFR Random Glucose Estimat Average Glucose Hemoglobin A1c % Lactic Acid Calcium Magnesium Total Bilirubin Direct Bilirubin AST ALT Alkaline Phosphatase C-Reactive Protein Total Protein Albumin Vitamin B12 Folate TSH 2.07 Urine Color Urine Appearance Urine pH Ur Specific [place] Urine Protein Urine Glucose (UA) Urine Ketones Urine Blood Urine Nitrite Ur Leukocyte Esterase Urine RBC Urine WBC Ur Squamous Epith Cells Talc Crystals Urine Bacteria Urine Opiates Screen Urine Fentanyl Screen Ur Barbiturates Screen Ur Phencyclidine Scrn Ur Amphetamines Screen U Benzodiazepines Scrn Urine Cocaine Screen U Marijuana (THC) Screen Ethyl Alcohol < 10 COVID-19 ([facility]) COVID-19 [facility] 07/02/21 07/02/21 07/02/21 12:16 12:16 12:18 MCV MCH MCHC RDW Plt Count MPV Immature Gran % (Auto) Neut % (Auto) Lymph % (Auto) [place] % (Auto) Eos % (Auto) Baso % (Auto) Lymph # (Auto) [place] # (Auto) Eos # (Auto) Baso # (Auto) Abs Immat Gran (auto) Absolute Neuts (auto) Absolute Nucleated RBC Nucleated RBC % (auto) Smear Tech's Comments ESR PT INR APTT VBG pH 7.46 H VBG pCO2 30 VBG pO2 125 VBG HCO3 21 L VBG O2 Saturation 100.0 VBG Base Excess -0.9 Anion Gap Estim Creat Clear Calc Estimated GFR Random Glucose Estimat Average Glucose Hemoglobin A1c % Lactic Acid 1.6 Calcium Magnesium Total Bilirubin Direct Bilirubin AST ALT Alkaline Phosphatase C-Reactive Protein 2.36 H Total Protein Albumin Vitamin B12 Folate TSH Urine Color Urine Appearance Urine pH Ur Specific [place] Urine Protein Urine Glucose (UA) Urine Ketones Urine Blood Urine Nitrite Ur Leukocyte Esterase Urine RBC Urine WBC Ur Squamous Epith Cells Talc Crystals Urine Bacteria Urine Opiates Screen Urine Fentanyl Screen Ur Barbiturates Screen Ur Phencyclidine Scrn Ur Amphetamines Screen U Benzodiazepines Scrn Urine Cocaine Screen U Marijuana (THC) Screen Ethyl Alcohol COVID-19 ([facility]) COVID-19 [facility] 07/02/21 07/02/21 07/02/21 12:36 14:48 14:48 MCV MCH MCHC RDW Plt Count MPV Immature Gran % (Auto) Neut % (Auto) Lymph % (Auto) [place] % (Auto) Eos % (Auto) Baso % (Auto) Lymph # (Auto) [place] # (Auto) Eos # (Auto) Baso # (Auto) Abs Immat Gran (auto) Absolute Neuts (auto) Absolute Nucleated RBC Nucleated RBC % (auto) Smear Tech's Comments ESR PT 15.1 H INR 1.3 H APTT 36.8 VBG pH VBG pCO2 VBG pO2 VBG HCO3 VBG O2 Saturation VBG Base Excess Anion Gap Estim Creat Clear Calc Estimated GFR Random Glucose Estimat Average Glucose Hemoglobin A1c % Lactic Acid Calcium Magnesium Total Bilirubin Direct Bilirubin AST ALT Alkaline Phosphatase C-Reactive Protein Total Protein Albumin Vitamin B12 Folate TSH Urine Color Urine Appearance Urine pH Ur Specific [place] Urine Protein Urine Glucose (UA) Urine Ketones Urine Blood Urine Nitrite Ur Leukocyte Esterase Urine RBC Urine WBC Ur Squamous Epith Cells Talc Crystals Urine Bacteria Urine Opiates Screen Not Detected Urine Fentanyl Screen Not Detected Ur Barbiturates Screen Not Detected Ur Phencyclidine Scrn Not Detected Ur Amphetamines Screen Not Detected U Benzodiazepines Scrn Not Detected Urine Cocaine Screen Not Detected U Marijuana (THC) Screen POSITIVE H Ethyl Alcohol COVID-19 ([facility]SY) Negative COVID-19 Clin Com See Note Imaging Radiologist's Impressions: Impressions Chest X-Ray 07/02/21 12:28 IMPRESSION: No acute pulmonary pathology Abdomen/Pelvis CT 07/02/21 13:44 IMPRESSION: -Hepatomegaly with heterogeneously decreased attenuation of the liver. Findings are consistent with underlying liver disease. Correlation with liver enzymes recommended. -A few prominent/mildly enlarged gastric/celiac lymph nodes are demonstrated, nonspecific. -Nondisplaced subacute fractures of the left lateral eighth and ninth ribs. Fleischner guidelines were followed. Assessment and Plan (1) Acute hyponatremia: Status: Acute (2) Elevated bilirubin: Status: Acute (3) Shuffling gait: Status: Acute (4) Muscle weakness: Status: Acute (5) Acute alcoholic hepatitis: Status: Acute Plan 36 year male with alcohol dependence, essential tremors here with weakness, neuropathy and what looks like acute alcoholic hepatitis and Hyponatremia and impending alcohol withdrawal 1/Acute alcoholic hepatitis--obviously should stop drinking, check hepatitis vrial serology, Unclear if steroid indicated at this time. His MELD score is 24 putting him at 3 months 19% mortality. Follow LFTS 2/ Hyponatremia--likely from fluid overload fom liver cirrhosis--Fluid restriction and recheck labs in the morning. 3/ Leukocytosis--no evidence of infection, likely reactive, repeat level tomorrow 4/ Essential tremros--continue Propranolol 5/Alcohol dependence and impending alcohol withdrawal--Phenobarbital prototol, supplemental thiamine and folate. 6/DVT prophylaxis--device given high INR Quality Stroke Does the patient have a stroke diagnosis?: No VTE Prior VTE?: No VTE Risk Level:: Medical - low VTE Device Contraindication: Patient Refused VTE Drug Contraindication: Treatment Not Indicated
[2021-07-02] MEDS: PHENobarbitaL sodium 130 MG/ML VIAL 256 MG IM (16:25)
[2021-07-02] MEDS: PHENobarbitaL sodium 130 MG/ML VIAL 192 MG IM ×2 (19:52→22:07)
[2021-07-02] MEDS: 0.9 % Sodium Chloride Flush 3 ML SYRINGE IVFLUSH (23:53)
[2021-07-03 01:53] VITALS: BP 121/79; PULSE 89; RESP 16; TEMP 37.2; O2SAT 97
[2021-07-03] MEDS: Melatonin 3 MG TABLET 6 MG PO (02:19)
[2021-07-03 06:26] VITALS: PULSE 88; RESP 16; TEMP 36.7; O2SAT 98
[2021-07-03 07:24] LABS: Hematocrit 27.7 % (42.0-52.0); Hemoglobin 9.7 g/dl (14.0-18.0); Mean Corpuscular Hemoglobin 38.5 pg (27.0-33.0); Mean Corpuscular Volume 109.9 fL (80.0-98.0); Mean Platelet Volume 9.7 fL (9.4-12.4); Platelet Count 200 X10*3/uL (160-400); Red Blood Count 2.52 X10*6/uL (4.60-5.80); Red Cell Distribution Width 13.1 % (11.0-16.0); White Blood Count 13.9 X10*3/uL (4.8-10.8)
[2021-07-03 07:39] LABS: Anion Gap 11 (12-20); Blood Urea Nitrogen 6 mg/dL (9-16); Calcium 8.6 mg/dL (8.4-10.2); Carbon Dioxide 22 mmol/L (22-29); Chloride 102 mmol/L (96-108); Estimated Glomerular Filt Rate > 60; Glucose Random 96 mg/dL (60-115); Potassium 4.1 mmol/L (3.3-5.1); Sodium 131 mmol/L (135-145)
[2021-07-03 08:00] VITALS: BP 126/82; PULSE 96; RESP 16; O2SAT 99
[2021-07-03 08:12] LABS: Alanine Aminotransferase 62 U/L (0-40); Albumin Level 3.3 g/dL (3.5-5.0); Alkaline Phosphatase 147 U/L (39-117); Aspartate Amino Transferase 127 U/L (5-37); Bilirubin Direct 1.1 mg/dL (0.0-0.5); Bilirubin Total 2.2 mg/dL (0.0-1.0); Total Protein 5.6 g/dL (6.5-8.0)
--- NOTE | 2021-07-03 08:53 | P.PNIM_ITS ---
Subjective Subjective Date of Service: 07/03/21 Interval History: F/u on alcohol withdrawal, hyponatremia and peripheral neuropathy Review of Systems no confusion, no tremors, pain in the legs Physical Exam Verdana 4l Vital Signs: Verdana 4d Verdana 4d Vital Signs: Verdana 4d Verdana 4Bd Last Vital Signs Verdana 4d Design Drafter New 4d Design Drafter New 4d Temp 98.1 F 07/03/21 06:26 Design Drafter New 4d Pulse 88 07/03/21 06:26 Design Drafter New 4d Resp 16 07/03/21 06:26 BP 121/79 07/03/21 01:53 Pulse Ox 98 07/03/21 06:26 BMI result Body Mass Index 27.9 Const: Other: General: AO X 3, no acute distress Resp: CTA bilateral CVS: S1,S2,RRR GI: +BS, NT, no distention Skin: No rash Neuro: motor grossly intact, ataxic gait Psych: appropriate affect Objective Data Active Medications Melatonin (Melatonin 3 Mg Tablet) 6 mg PO BEDTIME PRN PRN Reason: Insomnia Last Admin: 07/03/21 02:19 Dose: 6 mg Documented by: PATI Ondansetron HCl (Ondansetron Hcl 4 Mg/2 Ml Vial) 4 mg IVPUSH Q8H PRN PRN Reason: Nausea and Vomiting Phenobarbital (Phenobarbital 30 Mg Tablet) 60 mg PO BID [facility]; Protocol Stop: 07/04/21 21:01 Phenobarbital (Phenobarbital 30 Mg Tablet) 30 mg PO BID [facility]; Protocol Stop: 07/06/21 21:01 Phenobarbital (Phenobarbital 15 Mg Tablet) 15 mg PO DAILY [facility]; Protocol Stop: 07/08/21 09:01 Sodium Chloride (0.9 % Sodium Chloride Flush 3 Ml Syringe) 3 ml IVFLUSH QSHIFT [facility] Last Admin: 07/02/21 23:53 Dose: 3 ml Documented by: PATI Labs CBC & Chem 7: 07/03/21 07:05 07/03/21 07:05 Labs: Laboratory Results - last 24 hr 07/02/21 07/02/21 07/02/21 11:30 11:33 11:33 MCV 107.4 H MCH 38.0 H MCHC 35.4 RDW 13.1 Plt Count 369 MPV 9.1 L Immature Gran % (Auto) 1.0 H Neut % (Auto) 73.1 H Lymph % (Auto) 17.9 L Mckenzie % (Auto) 7.4 Eos % (Auto) 0.3 Baso % (Auto) 0.3 Lymph # (Auto) 4.1 Mckenzie # (Auto) 1.7 H Eos # (Auto) 0.1 Baso # (Auto) 0.1 Abs Immat Gran (auto) 0.23 H Absolute Neuts (auto) 16.8 H Absolute Nucleated RBC 0.000 Nucleated RBC % (auto) 0.0 Smear Tech's Comments VERIFIED ESR PT INR APTT VBG pH VBG pCO2 VBG pO2 VBG HCO3 VBG O2 Saturation VBG Base Excess Anion Gap 14 Estim Creat Clear Calc 218.9 Estimated GFR > 60 Random Glucose 123 H Estimat Average Glucose Hemoglobin A1c % Lactic Acid Calcium 9.3 Magnesium 1.8 Total Bilirubin 3.1 H Direct Bilirubin AST 182 H ALT 80 H Alkaline Phosphatase 173 H C-Reactive Protein Total Protein 6.6 Albumin 3.8 Vitamin B12 Folate TSH Urine Color DK YELLOW Urine Appearance HAZY Urine pH 6.0 Ur Specific [place] 1.010 Urine Protein NEG Urine Glucose (UA) NEG Urine Ketones NEG Urine Blood NEG Urine Nitrite NEG Ur Leukocyte Esterase TRACE H Urine RBC 0 Urine WBC 1-4 Ur Squamous Epith Cells TRACE Talc Crystals 1+ Urine Bacteria NONE Urine Opiates Screen Urine Fentanyl Screen Ur Barbiturates Screen Ur Phencyclidine Scrn Ur Amphetamines Screen U Benzodiazepines Scrn Urine Cocaine Screen U Marijuana (THC) Screen Ethyl Alcohol COVID-19 (ROSSY) COVID-19 Clin Com 07/02/21 07/02/21 07/02/21 11:33 12:14 12:14 MCV MCH MCHC RDW Plt Count MPV Immature Gran % (Auto) Neut % (Auto) Lymph % (Auto) Mckenzie % (Auto) Eos % (Auto) Baso % (Auto) Lymph # (Auto) Mckenzie # (Auto) Eos # (Auto) Baso # (Auto) Abs Immat Gran (auto) Absolute Neuts (auto) Absolute Nucleated RBC Nucleated RBC % (auto) Smear Tech's Comments ESR PT INR APTT VBG pH VBG pCO2 VBG pO2 VBG HCO3 VBG O2 Saturation VBG Base Excess Anion Gap Estim Creat Clear Calc Estimated GFR Random Glucose Estimat Average Glucose 103 Hemoglobin A1c % 5.2 Lactic Acid Calcium 9.5 Magnesium Total Bilirubin 3.1 H Direct Bilirubin 1.5 H AST 181 H ALT 79 H Alkaline Phosphatase 173 H C-Reactive Protein Total Protein 6.6 Albumin 3.8 Vitamin B12 863 Folate 2.0 L TSH Urine Color Urine Appearance Urine pH Ur Specific [place] Urine Protein Urine Glucose (UA) Urine Ketones Urine Blood Urine Nitrite Ur Leukocyte Esterase Urine RBC Urine WBC Ur Squamous Epith Cells Talc Crystals Urine Bacteria Urine Opiates Screen Urine Fentanyl Screen Ur Barbiturates Screen Ur Phencyclidine Scrn Ur Amphetamines Screen U Benzodiazepines Scrn Urine Cocaine Screen U Marijuana (THC) Screen Ethyl Alcohol COVID-19 (ROSSY) COVID-19 What's More Alive Than You 07/02/21 07/02/21 07/02/21 12:14 12:16 12:16 MCV MCH MCHC RDW Plt Count MPV Immature Gran % (Auto) Neut % (Auto) Lymph % (Auto) Mckenzie % (Auto) Eos % (Auto) Baso % (Auto) Lymph # (Auto) Mckenzie # (Auto) Eos # (Auto) Baso # (Auto) Abs Immat Gran (auto) Absolute Neuts (auto) Absolute Nucleated RBC Nucleated RBC % (auto) Smear Tech's Comments ESR 12 PT INR APTT VBG pH VBG pCO2 VBG pO2 VBG HCO3 VBG O2 Saturation VBG Base Excess Anion Gap Estim Creat Clear Calc Estimated GFR Random Glucose Estimat Average Glucose Hemoglobin A1c % Lactic Acid Calcium Magnesium Total Bilirubin Direct Bilirubin AST ALT Alkaline Phosphatase C-Reactive Protein Total Protein Albumin Vitamin B12 Folate TSH 2.07 Urine Color Urine Appearance Urine pH Ur Specific [place] Urine Protein Urine Glucose (UA) Urine Ketones Urine Blood Urine Nitrite Ur Leukocyte Esterase Urine RBC Urine WBC Ur Squamous Epith Cells Talc Crystals Urine Bacteria Urine Opiates Screen Urine Fentanyl Screen Ur Barbiturates Screen Ur Phencyclidine Scrn Ur Amphetamines Screen U Benzodiazepines Scrn Urine Cocaine Screen U Marijuana (THC) Screen Ethyl Alcohol < 10 COVID-19 (ROSSY) COVID-19 What's More Alive Than You 07/02/21 07/02/21 07/02/21 12:16 12:16 12:18 MCV MCH MCHC RDW Plt Count MPV Immature Gran % (Auto) Neut % (Auto) Lymph % (Auto) Mckenzie % (Auto) Eos % (Auto) Baso % (Auto) Lymph # (Auto) Mckenzie # (Auto) Eos # (Auto) Baso # (Auto) Abs Immat Gran (auto) Absolute Neuts (auto) Absolute Nucleated RBC Nucleated RBC % (auto) Smear Tech's Comments ESR PT INR APTT VBG pH 7.46 H VBG pCO2 30 VBG pO2 125 VBG HCO3 21 L VBG O2 Saturation 100.0 VBG Base Excess -0.9 Anion Gap Estim Creat Clear Calc Estimated GFR Random Glucose Estimat Average Glucose Hemoglobin A1c % Lactic Acid 1.6 Calcium Magnesium Total Bilirubin Direct Bilirubin AST ALT Alkaline Phosphatase C-Reactive Protein 2.36 H Total Protein Albumin Vitamin B12 Folate TSH Urine Color Urine Appearance Urine pH Ur Specific [place] Urine Protein Urine Glucose (UA) Urine Ketones Urine Blood Urine Nitrite Ur Leukocyte Esterase Urine RBC Urine WBC Ur Squamous Epith Cells Talc Crystals Urine Bacteria Urine Opiates Screen Urine Fentanyl Screen Ur Barbiturates Screen Ur Phencyclidine Scrn Ur Amphetamines Screen U Benzodiazepines Scrn Urine Cocaine Screen U Marijuana (THC) Screen Ethyl Alcohol COVID-19 (ROSSY) COVID-19 What's More Alive Than You 07/02/21 07/02/21 07/02/21 12:36 14:48 14:48 MCV MCH MCHC RDW Plt Count MPV Immature Gran % (Auto) Neut % (Auto) Lymph % (Auto) Mckenzie % (Auto) Eos % (Auto) Baso % (Auto) Lymph # (Auto) Mckenzie # (Auto) Eos # (Auto) Baso # (Auto) Abs Immat Gran (auto) Absolute Neuts (auto) Absolute Nucleated RBC Nucleated RBC % (auto) Smear Tech's Comments ESR PT 15.1 H INR 1.3 H APTT 36.8 VBG pH VBG pCO2 VBG pO2 VBG HCO3 VBG O2 Saturation VBG Base Excess Anion Gap Estim Creat Clear Calc Estimated GFR Random Glucose Estimat Average Glucose Hemoglobin A1c % Lactic Acid Calcium Magnesium Total Bilirubin Direct Bilirubin AST ALT Alkaline Phosphatase C-Reactive Protein Total Protein Albumin Vitamin B12 Folate TSH Urine Color Urine Appearance Urine pH Ur Specific [place] Urine Protein Urine Glucose (UA) Urine Ketones Urine Blood Urine Nitrite Ur Leukocyte Esterase Urine RBC Urine WBC Ur Squamous Epith Cells Talc Crystals Urine Bacteria Urine Opiates Screen Not Detected Urine Fentanyl Screen Not Detected Ur Barbiturates Screen Not Detected Ur Phencyclidine Scrn Not Detected Ur Amphetamines Screen Not Detected U Benzodiazepines Scrn Not Detected Urine Cocaine Screen Not Detected U Marijuana (THC) Screen POSITIVE H Ethyl Alcohol COVID-19 (ROSSY) Negative COVID-19 Clin Com See Note 07/03/21 07/03/21 07:05 07:05 MCV 109.9 H MCH 38.5 H MCHC 35.0 RDW 13.1 Plt Count 200 D MPV 9.7 Immature Gran % (Auto) Neut % (Auto) Lymph % (Auto) Mckenzie % (Auto) Eos % (Auto) Baso % (Auto) Lymph # (Auto) Mckenzie # (Auto) Eos # (Auto) Baso # (Auto) Abs Immat Gran (auto) Absolute Neuts (auto) Absolute Nucleated RBC 0.000 Nucleated RBC % (auto) 0.0 Smear Tech's Comments ESR PT INR APTT VBG pH VBG pCO2 VBG pO2 VBG HCO3 VBG O2 Saturation VBG Base Excess Anion Gap 11 L Estim Creat Clear Calc 240.0 Estimated GFR > 60 Random Glucose 96 Estimat Average Glucose Hemoglobin A1c % Lactic Acid Calcium 8.6 D Magnesium Total Bilirubin 2.2 H Direct Bilirubin 1.1 H AST 127 H ALT 62 H Alkaline Phosphatase 147 H C-Reactive Protein Total Protein 5.6 L Albumin 3.3 L Vitamin B12 Folate TSH Urine Color Urine Appearance Urine pH Ur Specific [place] Urine Protein Urine Glucose (UA) Urine Ketones Urine Blood Urine Nitrite Ur Leukocyte Esterase Urine RBC Urine WBC Ur Squamous Epith Cells Talc Crystals Urine Bacteria Urine Opiates Screen Urine Fentanyl Screen Ur Barbiturates Screen Ur Phencyclidine Scrn Ur Amphetamines Screen U Benzodiazepines Scrn Urine Cocaine Screen U Marijuana (THC) Screen Ethyl Alcohol COVID-19 (ROSSY) COVID-19 Clin Com Assessment and Plan (1) Acute alcoholic hepatitis: Status: Acute (2) Acute hyponatremia: Status: Acute (3) Alcohol abuse: Status: Acute (4) Elevated bilirubin: Status: Acute (5) Shuffling gait: Status: Acute Plan 36 year male with alcohol dependence, essential tremors here with weakness, neuropathy and what looks like acute alcoholic hepatitis and Hyponatremia and impending alcohol withdrawal 1/Acute alcoholic hepatitis--obviously should stop drinking, check hepatitis vrial serology, Unclear if steroid indicated at this time. His MELD score is 24 putting him at 3 months 19% mortality. LFTS are trendind down. 2/ Hyponatremia--likely from fluid overload or beer potomania--sodium level has improved, avoid NS, fluid restriction in place 3/ Leukocytosis--no evidence of infection, likely reactive, down from 23 to 13 today 4/ Essential tremros--continue Propranolol 5/Alcohol dependence and impending alcohol withdrawal--Phenobarbital prototol, supplemental thiamine and folate. 6/Peripheral Neuropathy--Neurontin 7/Ataxic gait/ PT eval 6/DVT prophylaxis--device given high INR Quality Stroke Does the patient have a stroke diagnosis?: No VTE Prior VTE?: No VTE Risk Level:: Medical - low VTE Device Contraindication: Patient Refused VTE Drug Contraindication: Treatment Not Indicated
[2021-07-03] MEDS: PHENobarbitaL 30 MG TABLET 60 MG PO ×2 (09:10→20:03)
[2021-07-03] MEDS: Folic Acid 1 MG TABLET PO (09:33)
[2021-07-03] MEDS: Gabapentin 100 MG CAPSULE PO ×2 (09:33→20:03)
[2021-07-03] MEDS: Thiamine HCL 100 MG TABLET PO (09:33)
[2021-07-03] MEDS: Propranolol HCL 40 MG TABLET PO ×2 (09:33→20:03)
[2021-07-03] MEDS: 0.9 % Sodium Chloride Flush 3 ML SYRINGE IVFLUSH (09:34)
--- NOTE | 2021-07-03 09:36 | PC.NURSE ---
Pt A&Ox3, no complaints of pain at this time. Ambulatory with use of cane, LCA, medicated as par MAR orders. Call cortez within reach, will continue to monitor.
--- NOTE | 2021-07-03 20:08 | PC.NURSE ---
Assumed care of pt at 1900. Pt ambulatory to and from shower independently. Medicated per MAR, denies complaints. Awaiting inpatient bed assignment
[2021-07-03 21:16] VITALS: BP 113/77; PULSE 77; RESP 16; TEMP 36.8; O2SAT 96
[2021-07-04 06:48] LABS: Hematocrit 28.6 % (42.0-52.0); Hemoglobin 10.1 g/dl (14.0-18.0); Mean Corpuscular HGB Conc 35.3 g/dl (31.0-36.0); Mean Corpuscular Hemoglobin 39.1 pg (27.0-33.0); Mean Platelet Volume 9.4 fL (9.4-12.4); Platelet Count 215 X10*3/uL (160-400); Red Blood Count 2.58 X10*6/uL (4.60-5.80); Red Cell Distribution Width 13.3 % (11.0-16.0); White Blood Count 13.2 X10*3/uL (4.8-10.8)
[2021-07-04 07:04] LABS: Anion Gap 13 (12-20); Blood Urea Nitrogen 6 mg/dL (9-16); Calcium 8.9 mg/dL (8.4-10.2); Carbon Dioxide 22 mmol/L (22-29); Chloride 101 mmol/L (96-108); Creatinine Clr Calc Pharmacy 235.4; Estimated Glomerular Filt Rate > 60; Glucose Random 94 mg/dL (60-115); Mean Corpuscular Volume 110.9 fL (80.0-98.0); Potassium 4.2 mmol/L (3.3-5.1); Sodium 132 mmol/L (135-145)
[2021-07-04 08:04] VITALS: BP 120/81; PULSE 83; RESP 18; TEMP 37.1; O2SAT 95
[2021-07-04] MEDS: PHENobarbitaL 30 MG TABLET 60 MG PO (08:29)
[2021-07-04] MEDS: Propranolol HCL 40 MG TABLET PO (08:29)
[2021-07-04] MEDS: Folic Acid 1 MG TABLET PO (08:29)
[2021-07-04] MEDS: 0.9 % Sodium Chloride Flush 3 ML SYRINGE IVFLUSH (08:30)
[2021-07-04] MEDS: Thiamine HCL 100 MG TABLET PO (08:30)
[2021-07-04] MEDS: Gabapentin 100 MG CAPSULE PO (08:30)
--- NOTE | 2021-07-04 09:11 | P.DS_ITS ---
DS: Providers Provider Date of Service: 07/04/21 Date of admission: 07/02/21 16:47 Primary care physician: Unknown Physician Consults: 07/02/21 16:47 Consult to Gastroenterology Routine Consulting Provider: Shakir Christina Reason for consultation: Acute alcoholic hepatitis Has provider been notified: No 07/04/21 09:00 Consult to Care Team Routine Comment: Reason for consultation: Alcohol depedence DS: Diagnosis Discharge Diagnosis (1) Acute alcoholic hepatitis: Status: Acute (2) Acute hyponatremia: Status: Acute (3) Alcohol abuse: Status: Acute (4) Elevated bilirubin: Status: Acute (5) Shuffling gait: Status: Acute DS: Summary Hospital Course Hospital Course: Chief Complaint: weaknesss and pain in legs and drinking too much alcohol 36 year male with alcohol dependence drinks about 6 to 8 drinks a day, history of essential tremors takes? propranolol, got covid in mid april 2021. He presents with complaints? of weakness in the extremities for about a week and half now to the point where he's having trouble walking, he's been complaining of neuropathic type of pain in the legs and the hands for more than a months.? He has recently been trying to cut down on his alcohol use. He has never been treated in the hospital for alcohol withdrawal, he has never had seizure. He felt so weak today and compell himself to come in today. He is covid negative and has had 2 doses of Pfizer vaccine. Work up in ED shows elevated LFTS, tbili 3.1,? INR is 1.3, sodium level is 125, WBC 23 no fever. Hospital course: 1/Acute alcoholic hepatitis--he obviously should stop drinking, his LFTS have improved and is expected to get better so long as he stays away from alcohol and other toxin such as tyelenol. He was evaluated by Dr. Christina with same message 2/ Hyponatremia--likely from fluid overload fom liver cirrhosis--Sodium level has improved from 119 to now 132 with fluid restriction and no mental issues 3/ Leukocytosis--no evidence of infection, likely reactive. WBC went from 23 to now 13 4/ Essential tremros--continue Propranolol 5/Alcohol dependence and impending alcohol withdrawal--He did not go into full blown alcohol withdrawal and yet was on phenobarbital for prevention. Again the danger and effects of alcohl on his health has been clearly communinicated with him and he is motivated to work on it. Time Spent with Patient Time attestation: Total time spent providing and/or coordinating discharge services: Discharge coordination time: Greater than 30 minutes Quality: Stroke Does the patient have a stroke diagnosis?: No Physical Exam Verdana 4l Vital Signs: Verdana 4d Verdana 4d Vital Signs: Verdana 4d Verdana 4Bd Last Vital Signs Verdana 4d Welding Technician New 4d Welding Technician New 4d Temp 98.7 F 07/04/21 08:04 Welding Technician New 4d Pulse 83 07/04/21 08:04 Welding Technician New 4d Resp 18 07/04/21 08:04 BP 120/81 07/04/21 08:04 Pulse Ox 95 07/04/21 08:04 BMI result Body Mass Index 27.9 Const: Other: General: AO X 3, no acute distress Resp:? CTA bilateral CVS: S1,S2,RRR GI: +BS, NT, no distention Skin: No rash Neuro:? motor grossly intact, ataxic gait Psych: appropriate affect DS: Data Data Completed and Pending Labs on day of discharge: Laboratory Results - last 24 hr 07/04/21 07/04/21 06:28 06:28 WBC 13.2 H RBC 2.58 L Hgb 10.1 L Hct 28.6 L MCV 110.9 H MCH 39.1 H MCHC 35.3 RDW 13.3 Plt Count 215 MPV 9.4 Absolute Nucleated RBC 0.000 Nucleated RBC % (auto) 0.0 Sodium 132 L Potassium 4.2 Chloride 101 Carbon Dioxide 22 Anion Gap 13 BUN 6 L Creatinine 0.53 Estim Creat Clear Calc 235.4 Estimated GFR > 60 Random Glucose 94 Calcium 8.9 Preliminary micro results at discharge 07/02/21 12:36 Blood Culture - Preliminary Blood - Venous No growth after 24 hours. 07/02/21 12:16 Blood Culture - Preliminary Blood - Venous No growth after 24 hours. Discharge Plan Discharge Anticipated Discharge Date/Time: 07/04/21 09:01 Patient Disposition: Home, Self-Care Discharge Diagnosis: liver cirrhosis, acute hepatitis, hyponatremia, peripheral neuropathy Referrals: Physician,Unknown J [Primary Care Provider] - 1 Week Discharge Medications: Continued propranolol 40 mg tablet 40 mg PO BID Qty: 60 1RF Diet: advance to usual diet and regular diet Activity on Discharge: As tolerated Stand Alone Forms: Patient Portal Discharge page Care Plan Goals: Full sobriety from alcohol and improvement mobility Health Concerns: Alcohol dependency with alcoholic cirrhosis and hepatitis Plan of Treatment: Avoid alcohol at all cost, attend resources given to you by social work, follow up with your Doctor Assessment: as above
--- NOTE | 2021-07-04 10:32 | MHC.RECOVSUP ---
Recovery Support note: Patient is a 36 year old Andorran speaking male who presented to [facility] ED due to foot pain and weakness. This press writer met with patient in [facility] to discuss his alcohol use and recovery supports. Patient reports he was drink 6-12 drinks a day, mostly liqueur. Patient states he was in the process of tapering down his consumption before presenting to the hospital as he wanted to reduce his alcohol use. Patient reports after this hospital stay, he is thinking it would be best to stop drinking entirely. Discussed the benefits of alcohol cessation and the health consequences of continued alcohol use with patient. Patient reports confidence that he will be able to abstain. Patient reports he has a supportive partner. Patient attributes his alcohol use in part to his hand tremor. Patient reports drinking would help minimize the tremor and he would use alcohol prior to social situations for this reason. Patient reports he is on medications now for his tremor and that he does not see the need to continue drinking. Discussed AA, IOP, [facility] [place] and medications for alcohol use disorder and the [facility]. Patient accepted information on all of these resources. Patient provided with contact information for this press writer in the event that he has additional questions after discharge. Discussed case with patient's RN.
--- NOTE | 2021-07-04 14:52 | MHC.CM.PN ---
Patient discharged before being able to be seen by case management.
--- NOTE | 2021-07-05 11:50 | CONS_ITS ---
DATE OF SERVICE: 07/03/2021 REFERRING PHYSICIAN: London Hurtado MD REASON FOR CONSULTATION: Alcoholic hepatitis. HISTORY OF PRESENT ILLNESS: The patient is a pleasant 36-year-old man who was admitted to the hospital on July 02 after presenting to the emergency room with complaints of leg weakness and neuropathy. He has a history of heavy alcohol use with upwards of 12 drinks on a daily basis, which he states he has been trying to cut down over the last week to 2 prior to admission. He describes sensation of pins and needles in his lower extremities, which has been present for months and over the past 2 weeks prior to admission, has had generalized weakness where he has to ambulate with a cane. He denies any prior history of alcoholic liver disease. He has not been in rehab but has had symptoms of tremor when he has stopped drinking in the past. This has been different from his essential tremor, which was treated with propranolol. PAST MEDICAL HISTORY: 1. Alcohol abuse. 2. Essential tremor. 3. History of COVID infection. 4. Elevated blood sugar. CURRENT MEDICATIONS: Current medication list is reviewed in the chart. ALLERGIES: THERE ARE NONE REPORTED. FAMILY HISTORY: This is noncontributory. SOCIAL HISTORY: He does use marijuana. Alcohol use is as noted above. REVIEW OF SYSTEMS: SKIN: No pruritus. HEENT: Negative. CARDIOPULMONARY: He denies shortness of breath or chest pain. GASTROINTESTINAL: As above. GENITOURINARY: Negative. NEUROPSYCHIATRIC: Negative. PHYSICAL EXAMINATION: GENERAL: Shows a pleasant male, lying comfortably in bed. VITAL SIGNS: Reviewed in the electronic medical record and are stable. SKIN: Anicteric. HEENT: Shows no scleral icterus. NECK: Without lymphadenopathy or thyromegaly. LUNGS: Clear. HEART: Shows a regular rate and rhythm. S1, S2. No murmur. ABDOMEN: Soft without focal masses or tenderness. Bowel sounds are present. No organomegaly is noted. EXTREMITIES: Do show some mild edema in the lower extremities. There is a mild tremor present. There is no asterixis. LABORATORY DATA: Shows a white blood cell count of 13.9, down from 23 on admission, hematocrit 27. Chemistries show an elevated bilirubin at 2.2 with an AST of 127 and an ALT of 62, alkaline phosphatase is also elevated at 147. INR is elevated at 1.3. Diagnostic imaging is reviewed. He underwent CT scanning, which showed enlargement of the liver with decreased attenuation in the normal gallbladder. IMPRESSION: Alcoholic liver disease. His presentation is consistent with mild alcoholic hepatitis. This appears to be improving. I discussed with him the need to discontinue alcohol use. He appears to understand this and is willing to pursue this. We discussed options for treatment. I would not recommend treatment of his alcoholic hepatitis with steroids at this time as it appears very mild. He is currently being treated for withdrawal with phenobarbital. I would recommend continuing this. Thanks for asking me to see him. I will follow him in the hospital with you. MD DILAN Valerio/CAROLYNE / [phone]
== END 2021-07-04 13:30 | disposition home or self-care (01) | DRG 280 ==
LOC: HO.ED 14:50 → HO.EDOVER 17:07
PROVIDERS: Admitting Provider Internal Medicine; Emergency Provider Emergency Medicine; Visit Provider Internal Medicine
DX: K70.10 Alcoholic hepatitis without ascites (principal); E87.1 Hypo-osmolality and hyponatremia; F11.20 Opioid dependence, uncomplicated; G25.0 Essential tremor; G62.9 Polyneuropathy, unspecified; D72.829 Elevated white blood cell count, unspecified; Z86.16 Personal history of COVID-19; Z20.822 Contact with and (suspected) exposure to COVID-19; Z79.899 Other long term (current) drug therapy
CPT/HCPCS: 36415; 71045; 74177; 80048; 80053; 80076; 80307; 81001; 82077; 82310; 82607; 82746; 82803; 83036; 83605; 83735; 84443; 85025; 85027; 85610; 85652; 85730; 86140; 87040; 87086; 87635; 93005; 96365; 96367; 96372; 96375; 97161; 99285; J2560; J3411; J3475; Q9967

== ENCOUNTER 2021-07-08 15:46 | Outpatient (REF) | payer BC, SELFPAY ==
[2021-07-08 16:09] LABS: MANUAL DIFF FLAG NO
[2021-07-08 16:45] LABS: Appearance Urine CLEAR; Color Urine DK YELLOW; Glucose Urine UA NEG (NEG); Leukocyte Esterase Urine NEG (NEG); Nitrite Urine NEG (NEG); PH 6.5 (5.0-8.0); Urine Blood NEG (NEG); Urine Ketones 15 MG/DL (NEG); Urine Protein TRACE MG/DL (NEG-TRACE)
[2021-07-08 16:48] LABS: Basophils Absolute Auto 0.1 X10*3/uL (0.0-0.2); Basophils Percent Auto 0.4 % (0-2); Eosinophils Absolute Auto 0.1 X10*3/uL (0.0-0.4); Eosinophils Percent Auto 0.6 % (0-4); Hematocrit 31.1 % (42.0-52.0); Hemoglobin 10.9 g/dl (14.0-18.0); Imm Gran Abs Auto 0.11 X10*3/uL (0.00-0.03); Imm Gran Pct Auto 0.8 % (0.0-0.4); Lymphocytes Absolute Auto 2.7 X10*3/uL (1.2-4.9); Lymphocytes Percent Auto 19.6 % (20-40); Mean Corpuscular Hemoglobin 37.5 pg (27.0-33.0); Mean Corpuscular Volume 106.9 fL (80.0-98.0); Mean Platelet Volume 10.2 fL (9.4-12.4); Monocytes Absolute Auto 1.2 X10*3/uL (0.1-1.2); Monocytes Percent Auto 8.9 % (2-11); Neutrophils Absolute Auto 9.7 x10*3/uL (2.0-8.3); Neutrophils Percent Auto 69.7 % (45-73); Platelet Count 334 X10*3/uL (160-400); Red Blood Count 2.91 X10*6/uL (4.60-5.80)
[2021-07-08 17:19] LABS: Alanine Aminotransferase 57 U/L (0-40); Albumin Level 3.8 g/dL (3.5-5.0); Alkaline Phosphatase 165 U/L (39-117); Aspartate Amino Transferase 111 U/L (5-37); Bilirubin Total 1.6 mg/dL (0.0-1.0); Gamma Glutamyl Transpeptidase 952 U/L (11-51); Total Protein 6.7 g/dL (6.5-8.0)
[2021-07-08 17:44] LABS: Folate 2.6 ng/mL (> or = 4.0); Vitamin B12 1280 pg/mL (200-900)
[2021-07-08 17:55] LABS: Estimated Average Glucose 100 mg/dL; Hemoglobin A1c % 5.1 %
[2021-07-08 18:12] LABS: HIV AB/AG Nonreactive (Nonreactive); HIV Num 1 0.18 S/CO (0.00-0.99)
[2021-07-09 08:19] LABS: HBsAGNum1 0.19 S/CO (0.00-0.99); Hepatitis B Surface Antigen Negative (Negative); ~HepC Num1 0.07 S/CO (0.00-0.79)
[2021-07-09 08:29] LABS: HBS Num1 326.16 mIU/mL (0-7.99); HBc Num1 0.13 S/CO (0.00-0.79); Hepatitis B Core Antibody Nonreactive (Nonreactive); ~Hepatitis B Surface Antibody REACTIVE (Nonreactive)
[2021-07-09 10:09] LABS: Hepatitis C Ab Exposure Source NonReactive (Nonreactive)
[2021-07-12 17:05] LABS: Vitamin B6 4.8 ng/mL (2.1-21.7)
== END 2021-07-08 15:47 | disposition home or self-care (01) ==
LOC: HO.LAB 15:46
PROVIDERS: PCP Nurse Practitioner Family; Visit Provider Nurse Practitioner Family
DX: Z11.4 Encounter for screening for human immunodeficiency virus [HIV] (principal); Z13.0 Encounter for screening for diseases of the blood and blood-forming organs and certain disorders involving the immune mechanism; E74.39 Other disorders of intestinal carbohydrate absorption; F10.10 Alcohol abuse, uncomplicated; G25.0 Essential tremor; M62.81 Muscle weakness (generalized); I10 Essential (primary) hypertension; D72.829 Elevated white blood cell count, unspecified
CPT/HCPCS: 36415; 80076; 81003; 82607; 82746; 82977; 83036; 84207; 85025; 86803

== ENCOUNTER 2021-07-23 14:19 | Outpatient (REF) | payer BC, SELFPAY ==
--- NOTE | ~2021-07-23 | CT_ITS ---
EXAMINATION: CT HEAD WITHOUT CONTRAST CLINICAL INFORMATION: Muscle weakness COMPARISON: None TECHNIQUE: Contiguous axial imaging was performed from the skull base to vertex without intravenous administration of contrast. This CT examination was performed using dose optimization techniques as appropriate, variously including the following: *Automated exposure control *Adjustment of mA and/or kV according to patient size (this includes techniques or standardized protocols for targeted exams where dose is matched to indication/reason for exam; i.e. extremities or head) *Use of iterative reconstruction technique DLP: 891 mGy-cm FINDINGS: There is no evidence of acute intracranial hemorrhage or territorial infarction. No abnormal mass effect or midline shift is seen. Bravo to white matter differentiation is well preserved. No extra-axial fluid collections are identified. The ventricles are normal in size. There is no abnormal attenuation within the brain parenchyma. The osseous structures and soft tissues are normal. The mastoid air cells and visualized portions of the paranasal sinuses are well aerated. CT/CT head/brain wo con IMPRESSION: No acute intracranial pathology.
== END 2021-07-23 14:20 | disposition home or self-care (01) ==
LOC: HO.CT 14:19
PROVIDERS: Visit Provider Nurse Practitioner Family
DX: M62.81 Muscle weakness (generalized) (principal); G25.0 Essential tremor; R26.89 Other abnormalities of gait and mobility
CPT/HCPCS: 70450

== ENCOUNTER 2021-11-18 14:00 | Outpatient (RCR) | payer BC, SELFPAY | END 2022-01-12 07:55 | disposition home or self-care (01) | LOC: HO.PT 14:00 | PROVIDERS: PCP Nurse Practitioner Family; Visit Provider Nurse Practitioner Family | DX: R26.89 Other abnormalities of gait and mobility (principal); M62.81 Muscle weakness (generalized); W19.XXXD Unspecified fall, subsequent encounter | CPT/HCPCS: 97110; 97112; 97140; 97162 ==

== ENCOUNTER 2022-03-16 14:00 | Outpatient (RCR) | payer OTHER, SELFPAY ==
--- NOTE | 2022-01-27 16:08 | MHC.PT.EP ---
[facility] [place] Office [place] Office [place] Office [address] Shara Roberts [address] [phone] F: [phone] F: [phone] F: [phone] F: [phone] Physical Therapy Plan of Care Date of Evaluation: Date of Surgery: Diagnosis: unspecified fall other abnormalities of gait and mobility muscle weakness Assessment: 36 y/o M referred to PT with unspecified fall, other abnormalities of gait and mobility, and muscle weakness. 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 He had PT initially and was making improvements in strength and balance, however his insurance ended and he was unable to continue. He has now returned to PT with hopes to further strengthen and progress balance at his new baseline. Currently he is using his cane less often (in parking lots, uneven surfaces, and unfamiliar terrain) and has not had a fall in a few months. He has difficulty with walking on uneven surfaces, returning to outside hobbies/ golf, walking downhill, walking at nights, and stairs (step-to pattern). Examination shows decreased B LE strength (R stronger than L), impaired sensation B feet, impaired balance, functional gait assessment 14/30, and impaired gait pattern. He would benefit from PT 2x/week for 6 weeks to address impairments, implement HEP, and optimize functional mobility. He is very motivated and compliant with previous HEP and is a good candidate for PT. Frequency and Duration: The patient will be seen 2x/week for 6 weeks Short Term Goals: 4 weeks 1. Compliant with HEP 2. Improve tandem walking without LOB > 10 feet to faciliate balance on uneven surfaces 3. Improve gait pattern to include symmetrical step length and more narrow ERIKA Director Of Regulatory Affairs Goals: y6 weeks 1. I with HEP and self managemnet of sx 2. Improve B LE strength by one MMT grade 3. Improve FGA to 20/30 to optimize functional mobility Treatment Plan: Modalities to reduce pain, spasms and effusion. Manual therapy to restore motion and function. Therapeutic exercise to improve strength and flexibility. Neuromuscular re-education for posture and balance. Therapeutic activities to return to functional activities of daily living. Electronically signed by: Blanca Julio PT Please sign and return to therapist. Thank you for your referral.
--- NOTE | 2022-03-16 15:07 | MHC.PT.DC ---
[facility] [place] [facility] [place] [facility] [place] [facility] [address] Shara Roberts 140 [facility] [phone] F: [phone] F: [phone] F: [phone] F: [phone] Physical Therapy Discharge Report Diagnosis: unspecified fall other abnormalities of gait and mobility muscle weakness Date of Surgery: Date of Evaluation: 01/27/22 Date of Discharge: 03/16/22 Treatments to Date: 12 Cancellations to Date: 0 No Shows to Date: 0 Discharge Status: Achieved Goals Improved Function Independent with HEP Discharge Summary: He reports feeling better and feels his balance has significantly improved. He has not used a cane in over a month and is playing golf again. Re-assessed FGA and pt has improved from 14/30 to 20/30 with most difficulty with vertical head turns during gait and tandem walking. He has made excellent progress and reviewed HEP and how to continue to gradually overload system for optimal gains. He has no further questions and is d/c at this time. Electronically signed by: Blanca Julio PT Please sign and return to therapist. Thank you for your referral.
== END 2022-03-16 15:07 | disposition home or self-care (01) ==
LOC: HO.PT 14:00
PROVIDERS: Visit Provider Nurse Practitioner Family
DX: R26.89 Other abnormalities of gait and mobility (principal); M62.81 Muscle weakness (generalized); W19.XXXA Unspecified fall, initial encounter
CPT/HCPCS: 97110; 97112; 97162; 97530

== ENCOUNTER 2022-07-13 08:37 | Outpatient (REF) | payer OTHER, SELFPAY ==
--- NOTE | 2022-07-13 08:42 | ECG_ITS ---
Test Reason : CHEST PAIN Blood Pressure : / mmHG Vent. Rate : 056 BPM Atrial Rate : 056 BPM P-R Int : 160 ms QRS Dur : 112 ms QT Int : 420 ms P-R-T Axes : 055 046 046 degrees QTc Int : 405 ms Sinus bradycardia with sinus arrhythmia Otherwise normal ECG When compared with ECG of 02-JUL-2021 12:18, T wave inversion no longer evident in Inferior leads QT has shortened Referred By: Meena Kimball Electronically Signed By:Hernandez Corley
[2022-07-13 08:58] LABS: MANUAL DIFF FLAG NO
[2022-07-13 09:34] LABS: Basophils Absolute Auto 0.1 X10*3/uL (0.0-0.2); Basophils Percent Auto 0.6 % (0-2); Eosinophils Absolute Auto 0.3 X10*3/uL (0.0-0.4); Eosinophils Percent Auto 2.8 % (0-4); Hemoglobin 14.1 g/dl (14.0-18.0); Imm Gran Abs Auto 0.04 X10*3/uL (0.00-0.03); Imm Gran Pct Auto 0.4 % (0.0-0.4); Lymphocytes Absolute Auto 4.3 X10*3/uL (1.2-4.9); Lymphocytes Percent Auto 48.3 % (20-40); Mean Corpuscular HGB Conc 34.4 g/dl (31.0-36.0); Mean Corpuscular Hemoglobin 29.6 pg (27.0-33.0); Mean Platelet Volume 11.1 fL (9.4-12.4); Monocytes Absolute Auto 0.6 X10*3/uL (0.1-1.2); Monocytes Percent Auto 6.7 % (2-11); Neutrophils Absolute Auto 3.7 x10*3/uL (2.0-8.3); Neutrophils Percent Auto 41.2 % (45-73); Platelet Count 205 X10*3/uL (160-400); Red Blood Count 4.77 X10*6/uL (4.60-5.80); Red Cell Distribution Width 13.5 % (11.0-16.0)
[2022-07-13 10:37] LABS: Alanine Aminotransferase 19 U/L (0-40); Albumin Level 4.4 g/dL (3.5-5.0); Alkaline Phosphatase 106 U/L (39-117); Anion Gap 12 (12-20); Aspartate Amino Transferase 18 U/L (5-37); Bilirubin Total 2.3 mg/dL (0.0-1.0); Blood Urea Nitrogen 20 mg/dL (9-16); Calcium 9.4 mg/dL (8.4-10.2); Carbon Dioxide 24 mmol/L (22-29); Chloride 107 mmol/L (96-108); Estimated Glomerular Filt Rate > 60; Glucose Random 103 mg/dL (60-115); Iron 92 mcg/dL (45-160); Percent Iron Saturation 37 % (15-50); Potassium 4.3 mmol/L (3.3-5.1); Sodium 139 mmol/L (135-145); Total Iron Binding Capacity 250 mcg/dL (228-428); Total Protein 6.9 g/dL (6.5-8.0); Unsaturated Iron Binding 158 ug/dL
[2022-07-13 10:40] LABS: Folate 8.1 ng/mL (> or = 4.0); Vitamin B12 620 pg/mL (200-900)
[2022-07-13 11:11] LABS: Osmolality, Serum 290 mosm/kg (281-305)
[2022-07-13 11:11] LABS: Osmolality Urine 535 mosm/kg (373-1093)
== END 2022-07-13 08:38 | disposition home or self-care (01) ==
LOC: HO.LAB 08:37
PROVIDERS: PCP Internal Medicine; Visit Provider Internal Medicine
DX: D72.829 Elevated white blood cell count, unspecified (principal); K70.9 Alcoholic liver disease, unspecified; R01.1 Cardiac murmur, unspecified; R06.00 Dyspnea, unspecified; D64.9 Anemia, unspecified; E87.1 Hypo-osmolality and hyponatremia; R07.9 Chest pain, unspecified; E53.8 Deficiency of other specified B group vitamins
CPT/HCPCS: 36415; 80053; 82607; 82746; 83540; 83930; 83935; 84300; 85025; 93005

== ENCOUNTER → 2022-07-28 14:54 | Outpatient (REF) | payer OTHER, SELFPAY ==
--- NOTE | 2022-07-28 14:57 | CA_ITS ---
Transthoracic Echocardiogram Patient (Last, First, Middle): Dwayne Harding, Gender: Male Date of : 1985 Age: 37 Procedure Date: 07/28/2022 Procedure Type: Transthoracic Echocardiogram Location: OP Height: 185.42 cm Weight: 83.92 kg BSA: 2.08 m2 Heart Rate: 61 bpm BP: 124 / 80 mmHg Food Order Delivery Runner: SB Referring MD: Meena Kimball MD Biom[employer] Facilitator: Robbin Buck MD Symptoms: R01.1 - Cardiac murmur, unspecified Study Quality: Good ECG Rhythm: Sinus Conclusions: - Normal study Findings Left Ventricle Normal left ventricular size, thickness, and systolic function. The visually estimated ejection fraction is between 65-70%. Diastolic function is normal for age. Peak GLS is -21.4%, which is normal Right Ventricle Normal right ventricular cavity size and systolic function. Atria Both atria are normal in size. There is no evidence of interatrial shunt. Aortic Valve Normal aortic valve structure and function. There is no aortic valve stenosis. There is no aortic valve regurgitation. Mitral Valve Normal mitral valve structure and function. There is trace mitral valve regurgitation. There is no mitral valve stenosis. Pulmonic Valve The pulmonic valve is likely normal. There is trace pulmonic valve regurgitation. Tricuspid Valve Normal tricuspid valve structure. There is trace tricuspid valve regurgitation. The right ventricular systolic pressure is normal. The right ventricular systolic pressure is 30 mmHg. Normal right atrial pressure. There is no evidence of pulmonary hypertension. Great Vessels All visible segments of the aorta are normal in size. The pulmonary artery was not well visualized. Venous The inferior vena cava is normal in size and collapses greater than 50% with inspiration. Pericardium/Pleural There is no evidence of pericardial effusion. Prior Study Comparison No prior study available for comparison. Measurements 2D Linear Measurements IVSd: 0.86 0.6-0.9/0.6-1.0 cm LVIDd: 5.68 3.9-5.3/4.2-5.9 cm LVIDd Index: 2.73 2.4-3.2/2.2-3.1 cm/m2 LVIDs: 3.75 2.0-3.6 cm LVPWd: 0.75 0.7-1.1 cm LA Diam: 4.20 2.7-3.8/3.0-4.0 cm LAIDs Index: 2.02 1.5-2.3 cm/m2 LV Mass: 213.17 67-162/88-224 g LV Mass Index: 102.48 43-95/49-115 g/m2 LVOT Diam: 2.60 3.0+(-)1.3 cm 2D Systolic Function EF 4C: 58.80 >55% EF 2C: 72.20 >55% EF BiP: 67.40 >55% Mitral Valve MV Pk E: 0.72 MV PK A: 0.47 MV Decel Time: 165.00 E/A: 1.50 E'Lateral: 13.10 E'Medial: 9.68 E/E' Med: 7.40 E/E' Lat: 5.50 PHT: 48.00 MVA PHT: 4.58 Decel [place]: 4.34 Aortic Valve AoV Pk Wu: 1.58 AoV Pk Grad: 10.00 [place]: 5.40 LVOT LVOT Pk Wu: 1.61 LVOT Mn Wu: 1.08 LVOT VTI: 0.33 LVOT Pk Grad: 10.00 LVOT Mn Grad: 5.00 LVOT Diam: 2.60 LVOT Area: 5.31 Diastolic Function MV Pk E: 0.72 MV Pk A: 0.47 E/A: 1.50 E'Medial: 9.68 E/E' Med: 7.40 E' Laterial: 13.10 E/E' Lat: 5.50 Right Ventricle TAPSE (mm): 30.40 TVS' Wu: 15.70 Tricuspid Valve TR Pk Wu: 2.62 TR Pk Grad: 27.00 RA Press: 3.00 RVSP: 30.00 Great Vessels Aorta Sinus of Valsalva: 3.00 2.0-3.5 cm Ao Asc: 3.30 2.1-3.4 cm Pulmonary Veins Pulm Vein S/D 1.00 Pulmonary Valve PV Pk Wu: 1.42 Peak PV Grad: 8.00 Updated in Other Vendor System with Status of Final Robbin Buck MD electronically signed on 07/29/2022 1:00:05 PM with status of Final
== END ==
LOC: HO.CARD 14:54
PROVIDERS: PCP Internal Medicine; Visit Provider Internal Medicine
DX: R01.1 Cardiac murmur, unspecified (principal); R06.00 Dyspnea, unspecified
CPT/HCPCS: 93306; 93356